=== PATIENT | male | born 1960 | race Caucasian/White ===

== ENCOUNTER 2017-06-12 05:09 | Day surgery (SDC) | payer MEDICAID ==
[2017-06-07 09:48] LABS: CLARITY,URINE CLEAR (Clear); COLOR,URINE STRAW (Yellow); GLUCOSE, URINE NEGATIVE (Neg); KETONES,URINE NEGATIVE (Neg); LEUKOCYTE ESTERASE ,URINE NEGATIVE (Neg); NITRITES, URINE NEGATIVE (Neg); OCCULT BLOOD,URINE NEGATIVE (Neg); PROTEIN,URINE NEGATIVE (Neg); UROBILINOGEN,URINE 0.2 E.U/dL (0.2-1.0)
[2017-06-07 09:49] LABS: UA COLLECTION TYPE CLN CATCH MIDSTREAM
[2017-06-07 09:57] LABS: ALBUMIN 4.1 G/DL (3.4-5.0); ANION GAP 3 (8-16); BLOOD UREA NITROGEN 10 MG/DL (7-18); BUN/CREATININE RATIO 13.7 (5.4-32.0); CALCIUM 9.4 MG/DL (8.5-10.1); CHLORIDE 107 MMOL/L (99-107); CREATININE 0.73 MG/DL (0.60-1.10); GLUCOSE 103 MG/DL (70-104); PARTIAL THROMBOPLASTIN TIME 29 SECONDS (22-32); POTASSIUM 4.5 MMOL/L (3.5-5.1); PROTHROMBIN TIME 10.7 SECONDS (9.0-12.0); SODIUM 141 MMOL/L (135-145); TOTAL CARBON DIOXIDE 30.9 MMOL/L (24-32); eGFR > 90 ML/MIN
[2017-06-07 10:01] LABS: BASOPHILS % (AUTO) 0.3 % (0-1); EOSINOPHILS # (AUTO) 0.1 X10'3 (0-0.9); HEMATOCRIT 39.3 % (42.0-52.0); HEMOGLOBIN 13.4 g/dl (14.0-17.9); LYMPHOCYTES # (AUTO) 2.3 X10'3 (1.1-4.8); LYMPHOCYTES % (AUTO) 37.5 % (21-51); MONOCYTES # (AUTO) 0.4 X10'3 (0-0.9); MONOCYTES % (AUTO) 6.1 % (2-12); NEUTROPHILS # (AUTO) 3.3 X10'3 (1.8-7.7); NEUTROPHILS % (AUTO) 54.1 % (42-75); PLATELET COUNT 197 X10'3 (140-440); RED BLOOD COUNT 3.93 X10'6 (4.70-6.10); RED CELL DISTRIBUTION WIDTH 12.4 % (11.5-14.5); WHITE BLOOD COUNT 6.1 X10'3 (4.5-11.0)
[~2017-06-12] VITALS: Ht 175.3 cm; Wt 64.3 kg
[2017-06-12] VITALS (8 sets, daily range): BP systolic 95–107; BP diastolic 46–74
[2017-06-12] MEDS ORDERED: NO HOME MEDS (05:33)
[2017-06-12] MEDS ORDERED: diphenhydrAMINE 25mg capsule PO ONE (06:05)
[2017-06-12] MEDS ORDERED: LORazepam 0.5 MG tablet PO ONE (06:05)
[2017-06-12] MEDS ORDERED: normal saline 1000ml 1,000 ML IV ONE (06:05)
[2017-06-12] MEDS ORDERED: LIDOcaine 1.5% w/epinephrine 1:200,000 5ml ampul ONE (06:16)
[2017-06-12] MEDS ORDERED: ceFAZolin 1000mg inj ONE (06:16)
[2017-06-12] MEDS ORDERED: ceFAZolin 1GM/D5W- ADD-VANTAGE 50 ML IV ONE (06:16)
[2017-06-12] MEDS ORDERED: fentaNYL/PF 50MCG/1 ML 2ML syringe ONE (06:37)
[2017-06-12] MEDS ORDERED: midazolam 2 mg/2 ml injection ONE (06:37)
[2017-06-12] MEDS ORDERED: cefazolin 1gm/NS 100mL 100 ML IV SCH (08:00)
[2017-06-12] MEDS ORDERED: HYDROcodone/acetaminophen 10/325mg tab PO PRN (08:45)
[2017-06-12] MEDS ORDERED: HYDROcodone/acetaminophen 5mg/325mg tablet PO PRN (08:45)
== END 2017-06-12 09:34 | disposition home or self-care (01) ==
LOC: SSTAY O 05:09
PROVIDERS: ATTEND Internal Medicine Interventional Cardiology
DX: Z45.010 Encounter for checking and testing of cardiac pacemaker pulse generator [battery] (principal); I44.1 Atrioventricular block, second degree; Z79.01 Long term (current) use of anticoagulants; Z79.899 Other long term (current) drug therapy; Z87.891 Personal history of nicotine dependence
CPT/HCPCS: 33228; 36415; 80048; 81003; 85025; 85610; 85730; 99152; 99153; C1785; J0690; J2250; J3010; J3490; J7030; Q0163; A4620